=== PATIENT | male | born 1995 | race Caucasian/White ===

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

== ENCOUNTER 2021-09-19 11:14 | Emergency (ER) | payer OTHER ==
[~2021-09-19] VITALS: Ht 180.3 cm; Wt 77.1 kg
[~2021-09-19 11:14] MED LIST changes: -ACETAMINOPH W/CODEINE #3 TAB UD PO PRN; -EPINEPHrine 1MG/ML INJ 30ML MD-VIAL As Ordered ONE; -GLYCOPYRROLATE INJ 0.2 MG/ML 2 ML VIAL As Ordered ONE; -KETOROLAC 30 MG/ML VIAL (J1885) IV PRN; -LIDOCAINE 2% INJ 100 MG/5 ML SDV (FOR ANES.) As Ordered ONE; -LIDOCAINE W/EPINEPHRINE 1% 20ML VIAL As Ordered ONE; -LR 1,000 ML IV ONE; -LR 1,000 ML IV SCH; -METHYLENE BLUE 0.5% (5MG/ML) 10 ML AMP (PROVAYBLUE)(Q9968 PER 1MG) As Ordered ONE; -MIDAZOLAM INJ 2 MG/2 ML VIAL (J2250) As Ordered ONE; -MORPHINE 10 MG/ML 1ML VIAL IV PRN; -NEOSTIGMINE 1MG/ML 5 ML SYRINGE (J2710) As Ordered ONE; -ONDANSETRON 4MG/2ML VIAL (J2405) As Ordered ONE; -ONDANSETRON 4MG/2ML VIAL (J2405) IV PRN; -PROPOFOL 200 MG/20 ML VIAL As Ordered ONE; -ROCURONIUM BROMIDE 50 MG/5 ML VIAL As Ordered ONE; -dexameTHASONE 4 MG/ML 1ML VIAL (J1100) As Ordered ONE; -fentaNYL 100 MCG/2 ML INJECTION (J3010) As Ordered ONE; -fentaNYL 100 MCG/2 ML INJECTION (J3010) IV PRN
[2021-09-19] MEDS ORDERED: NS 1,000 ML IV ONE (14:15)
[2021-09-19 15:45] VITALS: BP 111/61
== END 2021-09-19 15:46 | disposition home or self-care (01) ==
LOC: M ED 11:14
DX: R07.9 Chest pain, unspecified (principal); I95.1 Orthostatic hypotension; R94.31 Abnormal electrocardiogram [ECG] [EKG]; F32.A Depression, unspecified

== ENCOUNTER → 2021-11-14 | Outpatient (REF) | payer OTHER | LOC: M LAB REF 14:27 | PROVIDERS: ATTEND Physician Assistant | DX: R05.9 Cough, unspecified (principal); R50.9 Fever, unspecified ==

== ENCOUNTER → 2021-11-19 | Outpatient (CLI) | payer OTHER | LOC: M RAD 12:28 | PROVIDERS: ATTEND Internal Medicine | DX: N50.89 Other specified disorders of the male genital organs (principal) ==

== ENCOUNTER → 2023-09-11 | Outpatient (CLI) | payer OTHER | LOC: M RAD 15:23 | PROVIDERS: ATTEND Internal Medicine | DX: N43.3 Hydrocele, unspecified (principal); N50.3 Cyst of epididymis ==